=== PATIENT | male | born 1975 | race African-American/Black ===

== ENCOUNTER 2019-01-04 22:22 | Emergency (ER) | payer SELFPAY ==
[~2019-01-04] VITALS: Ht 172.7 cm; Wt 128.0 kg
[2019-01-05] MEDS ORDERED: KETOROLAC 30MG/ML VIAL IM ONE (02:00)
[2019-01-05 05:00] VITALS: BP 153/87
== END 2019-01-05 05:07 | disposition home or self-care (01) ==
LOC: ER 22:22
DX: M25.572 Pain in left ankle and joints of left foot (principal); M25.571 Pain in right ankle and joints of right foot
CPT/HCPCS: 73610; 73630; 99283; J1885